=== PATIENT | male | born 1995 | race Caucasian/White ===

== ENCOUNTER 2025-06-14 17:49 | Inpatient (IN) | payer SELFPAY ==
[~2025-06-14] VITALS: Ht 198.1 cm; Wt 156.9 kg
[2025-06-14 18:33] LABS: BASOPHILS % 0.3 % (0.0-1.0); EOSINOPHILS % 0.1 % (0.0-6.0); LYMPHOCYTES % 4.2 % (18.0-39.1); MONOCYTES % 5.9 % (4.4-11.3); NEUTROPHILS % 88.7 % (38.7-80.0); RED CELL DISTRIBUTION WIDTH 12.6 % (11.7-14.4)
[2025-06-14 18:45] LABS: INR 0.99
[2025-06-14 18:54] LABS: EST GLOMERULAR FILTRATION RATE 75.0 ML/MIN (>=60)
[2025-06-14] MEDS: SODIUM CHLORIDE 0.9% 1000ML 1,000 ML IV ONE ×2 (19:28→19:29)
[2025-06-14] MEDS: ACETAMINOPHEN 325 MG TAB PO ONE (19:28)
[2025-06-14 20:26] VITALS: PULSE 100; RESP 23; O2SAT 100
[2025-06-14] MEDS ORDERED: ONDANSETRON HCL INJ 2MG/ML 2ML 2 MG/ML VIAL IV PRN (20:30)
[2025-06-14] MEDS ORDERED: Morphine 4mg INJECTION 4 MG/ML INJ IV PRN (20:30)
[2025-06-14] MEDS: Vancomycin IV 1 GM in SODIUM CHLORIDE 0.9% 250ML 250 ML IV SCH (20:36)
[2025-06-14 21:45] VITALS: PULSE 102; RESP 16; TEMP 99.2
[2025-06-14 22:22] VITALS: PULSE 101; RESP 20; O2SAT 93
[2025-06-14 22:32] LABS: LEUKOCYTE ESTERASE ,URINE NEGATIVE (NEGATIVE); PROTEIN,URINE DIPSTICK TRACE (NEGATIVE); URINE UROBILINOGEN 0.2 mg/dL (0.2 - 1)
[2025-06-14 22:34] VITALS: BP 121/62; PULSE 96; RESP 18; TEMP 97.6; O2SAT 98
[2025-06-14] MEDS: SODIUM CHLORIDE 0.9% 1000ML 1,000 ML IV SCH (22:43)
[2025-06-14 23:00] LABS: EPITHELIAL CELLS,URINE FEW /LPF; WBC,URINE (MAN) 0-5 /HPF (0-5)
[2025-06-14 23:07] VITALS: BP 123/53; PULSE 101; RESP 20; O2SAT 93
[2025-06-14 23:30] VITALS: BP 123/53; PULSE 101; RESP 20; TEMP 97.8; O2SAT 93
[2025-06-15] VITALS (7 sets, daily range): BP systolic 103–142; BP diastolic 49–78; PULSE 72–99; RESP 18–20; TEMP 98–99.6; O2SAT 97–100
[2025-06-15] MEDS: ACETAMINOPHEN 325 MG TAB PO PRN (04:12)
[2025-06-15 06:00] LABS: BASOPHILS % 0.3 % (0.0-1.0); EOSINOPHILS % 0.1 % (0.0-6.0); LYMPHOCYTES % 9.1 % (18.0-39.1); MONOCYTES % 6.1 % (4.4-11.3); NEUTROPHILS % 83.8 % (38.7-80.0); RED CELL DISTRIBUTION WIDTH 12.7 % (11.7-14.4)
[2025-06-15 06:35] LABS: EST GLOMERULAR FILTRATION RATE 95.0 ML/MIN (>=60)
[2025-06-15] MEDS: CLINDAMYCIN HCL 150 MG CAP PO SCH (12:45)
[2025-06-15] MEDS: CEFAZOLIN SODIUM 2 GM in SODIUM CHLORIDE 0.9% 100 ML IV SCH (12:45)
[2025-06-16] VITALS (8 sets, daily range): BP systolic 125–153; BP diastolic 60–89; PULSE 69–98; RESP 17–18; TEMP 98.1–98.6; O2SAT 96–100
[2025-06-16 06:18] LABS: BASOPHILS % 0.2 % (0.0-1.0); EOSINOPHILS % 1.3 % (0.0-6.0); LYMPHOCYTES % 17.7 % (18.0-39.1); MONOCYTES % 8.8 % (4.4-11.3); NEUTROPHILS % 71.6 % (38.7-80.0); RED CELL DISTRIBUTION WIDTH 13.1 % (11.7-14.4)
[2025-06-16 06:30] LABS: EST GLOMERULAR FILTRATION RATE 90.0 ML/MIN (>=60)
[2025-06-17 04:00] VITALS: BP 130/83; PULSE 65; RESP 20; TEMP 97.5; O2SAT 98
[2025-06-17 06:28] LABS: BASOPHILS % 0.4 % (0.0-1.0); EOSINOPHILS % 2.5 % (0.0-6.0); LYMPHOCYTES % 26.3 % (18.0-39.1); MONOCYTES % 9.6 % (4.4-11.3); NEUTROPHILS % 60.8 % (38.7-80.0); RED CELL DISTRIBUTION WIDTH 13.0 % (11.7-14.4)
[2025-06-17 07:19] LABS: EST GLOMERULAR FILTRATION RATE 109.0 ML/MIN (>=60)
[2025-06-17 08:14] VITALS: BP 121/53; PULSE 75; RESP 18; TEMP 97.8; O2SAT 97
[2025-06-17 09:00] VITALS: BP 121/53; PULSE 75; RESP 18; TEMP 97.8; O2SAT 97
[2025-06-17 12:41] VITALS: BP 107/69; PULSE 64; RESP 18; TEMP 97.3; O2SAT 99
== END 2025-06-17 15:02 | disposition home or self-care (01) | DRG 872 ==
LOC: ER 18:16 → ERHOLD 20:19 → MED/SURG2 22:24
PROVIDERS: ADMIT Internal Medicine; ATTEND Internal Medicine
DX: A41.9 Sepsis, unspecified organism (principal); L03.115 Cellulitis of right lower limb; E87.20 Acidosis, unspecified; N17.9 Acute kidney failure, unspecified; R65.20 Severe sepsis without septic shock; E87.8 Other disorders of electrolyte and fluid balance, not elsewhere classified; B95.5 Unspecified streptococcus as the cause of diseases classified elsewhere; Z90.49 Acquired absence of other specified parts of digestive tract
CPT/HCPCS: 36415; 71045; 80048; 80053; 81001; 81003; 83605; 85025; 85610; 85730; 87040; 87086; 93005; 93971; 94799; 99284; J2543; J3373; J7030; J7050